=== PATIENT | female | born 1975 | race African-American/Black ===

== ENCOUNTER 2017-09-02 18:19 | Emergency (ER) | payer BC, OTHER ==
[~2017-09-02] VITALS: Ht 167.6 cm; Wt 77.1 kg
[~2017-09-02 18:19] MED LIST: AZITHROMYCIN 2250 MG PO; CENTRUM SILVER1 EAC2 PO; COMPAZINE5 M1 PO; ERYTHROMYCIN E3.5 G3 OPHTHALMIC; IRON325 PO; LEVSIN-SL0.125 MG SL; LISINOPRIL-HCT1 EAC2 PO; OMEPRAZOLE 20 M20 M1 PO; PERCOCET 5-3251 EACH PO; PHENERGAN 25 MG25 M1 PO; PRILOSEC 20 MG20 MG PO; TESSALON PERLE100 MG PO; ULTRAM 50MG TAB50 MG PO; UNICOMPLEX M TA1 TA1 PO; VENTOLIN HFA 1818 GM INH; ZESTORETIC 20-1 EAC1 PO
[2017-09-02] MEDS ORDERED: TESSALON PERLE100 MG PO (19:28)
[2018-01-28] MEDS ORDERED: BIOTIN10 MG PO (16:36)
[2018-01-28] MEDS ORDERED: POTASSIUM20 PO (17:31)
[2018-01-28] MEDS ORDERED: FLAGYL500 MG PO (17:33)
[2018-01-28] MEDS ORDERED: NORCO 5-325 TA1 EACH PO (17:33)
[2018-03-07] MEDS ORDERED: CLARITIN-D 121 EAC1 PO (21:09)
[2018-03-07] MEDS ORDERED: IBUPROFEN 600600 M1 PO (21:09)
[2018-03-07] MEDS ORDERED: CLARITIN10 MG PO (21:34)
[2018-03-07] MEDS ORDERED: LISINOPRIL-HCT1 EACH PO (21:34)
== END 2017-09-02 19:44 | disposition home or self-care (01) ==
LOC: ER 18:19
DX: J06.9 Acute upper respiratory infection, unspecified (principal); I10 Essential (primary) hypertension

== ENCOUNTER 2017-10-27 23:34 | Emergency (ER) | payer BC, OTHER ==
[~2017-10-27] VITALS: Ht 167.6 cm; Wt 81.7 kg
[2017-10-27] MEDS ORDERED: VITAMIN B-625 MG PO (23:57)
[2017-10-27] MEDS ORDERED: VITAMIN B122500 MC1 PO (23:57)
[2017-10-28] MEDS ORDERED: NAPROSYN500 MG PO (00:41)
[2017-10-28] MEDS ORDERED: TRAMADOL 50 MG50 MG PO (00:41)
[2017-10-28] MEDS ORDERED: NORFLEX100 MG PO (00:41)
[2017-10-28 01:16] VITALS: BP 157/90
== END 2017-10-28 01:17 | disposition home or self-care (01) ==
LOC: ER 23:34
DX: M75.52 Bursitis of left shoulder (principal); M43.6 Torticollis; I10 Essential (primary) hypertension; F17.210 Nicotine dependence, cigarettes, uncomplicated

== ENCOUNTER 2018-12-26 10:05 | Emergency (ER) | payer BC, OTHER ==
[~2018-12-26] VITALS: Ht 167.6 cm; Wt 83.5 kg
[2018-12-26 10:05] VITALS: BP 184/123
[~2018-12-26 10:05] MED LIST changes: +BIOTIN10 MG PO; +CLARITIN-D 121 EAC1 PO; +CLARITIN10 MG PO; +FLAGYL500 MG PO; +IBUPROFEN 600600 M1 PO; +LISINOPRIL-HCT1 EACH PO; +NAPROSYN500 MG PO; +NORCO 5-325 TA1 EACH PO; +NORFLEX100 MG PO; +POTASSIUM20 PO; +TRAMADOL 50 MG50 MG PO; +VITAMIN B-625 MG PO; +VITAMIN B122500 MC1 PO
[2018-12-26] MEDS ORDERED: MOBIC7.5 MG PO (10:28)
[2018-12-26] MEDS ORDERED: TRAMADOL 50 MG50 MG PO (10:28)
== END 2018-12-26 10:47 | disposition home or self-care (01) ==
LOC: ER 10:05
DX: G89.29 Other chronic pain (principal); M25.512 Pain in left shoulder; R20.0 Anesthesia of skin; R20.2 Paresthesia of skin; I10 Essential (primary) hypertension; I42.9 Cardiomyopathy, unspecified; F17.210 Nicotine dependence, cigarettes, uncomplicated; Z88.8 Allergy status to other drugs, medicaments and biological substances

== ENCOUNTER 2019-04-06 09:19 | Emergency (ER) | payer BC, OTHER ==
[~2019-04-06] VITALS: Ht 167.6 cm; Wt 88.0 kg
[~2019-04-06 09:19] MED LIST changes: +MOBIC7.5 MG PO
[2019-04-06 09:59] LABS: ABSOLUTE NEUTROPHILS 3.9 thou/uL (1.4-8.2); BASOPHILS 0.7 % (0.0-2.0); EOSINOPHILS 1.3 % (0.0-3.0); HEMATOCRIT 35.9 % (37.0-47.0); HEMOGLOBIN 11.9 gm/dL (12.0-15.0); LYMPHOCYTES 21.4 % (24.0-44.0); MCH 30.9 pg (26.0-34.0); MCV 93.5 fL (80.0-100.0); MONOCYTES 3.4 % (1.0-8.0); PLATELET COUNT 190 thou/uL (150-400); POLYS 73.2 % (36.0-66.0); RBC 3.84 mil/uL (4.20-5.00); RDW 14.5 % (10.5-14.5); WBC 5.3 thou/uL (4.0-11.0)
[2019-04-06 10:02] LABS: ANION GAP 8 mmol/L (7-16); BUN 10 mg/dL (7-18); CALCIUM 8.8 mg/dL (8.5-10.1); CHLORIDE 103 mmol/L (98-107); CO2 29 mmol/L (21-32); GLUCOSE 88 mg/dL (74-106); POTASSIUM 3.2 mmol/L (3.5-5.1); SODIUM 140 mmol/L (136-145)
[2019-04-06 10:13] LABS: ALBUMIN 3.4 g/dL (3.4-5.0); MAGNESIUM 1.7 mg/dL (1.8-2.4); SGOT 16 U/L (15-37); SGPT 15 U/L (30-65); TOTAL BILIRUBIN 0.4 mg/dL (<0.1-1.0); TROPONIN-I <0.06 ng/mL (<0.06)
[2019-04-06] MEDS ORDERED: LOTENSIN HCT 21 EAC2 PO (13:02)
[2019-04-06 13:16] VITALS: BP 183/98
--- NOTE | 2019-04-07 15:08 | EKG ---
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 : 1975 Requested By: Moses Vasquez Order Number: [id number] MD: Asif John Measurements Intervals [place] Rate: 65 P: 46 IA: 214 QRS: 16 QRSD: 83 T: 41 QT: 425 QTc: 442 Interpretive Statements Sinus rhythm Prolonged IA interval Left atrial enlargement Anteroseptal infarct, age indeterminate Baseline wander in lead(s) II Compared to ECG 01/28/2018 14:25:21 First degree AV block now present Atrial abnormality now present Myocardial infarct finding now present Poor R-wave progression no longer present Electronically Signed On 04-07-2019 15:07:48 CDT by Asif John [email or web address] <ELECTRONICALLY SIGNED> By: Asif John MD 04/07/19 1507 8 8 Asif John MD /EPI
--- NOTE | 2019-04-07 15:09 | EKG ---
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
== END 2019-04-06 13:17 | disposition home or self-care (01) ==
LOC: ER 09:19
PROVIDERS: Emergency Medicine
DX: R07.89 Other chest pain (principal); F17.210 Nicotine dependence, cigarettes, uncomplicated; I10 Essential (primary) hypertension; Z88.8 Allergy status to other drugs, medicaments and biological substances

== ENCOUNTER 2021-02-06 13:45 | Emergency (ER) | payer OTHER ==
[~2021-02-06] VITALS: Ht 167.6 cm; Wt 87.5 kg
[~2021-02-06 13:45] MED LIST changes: +LOTENSIN HCT 21 EAC2 PO
[2021-02-06] MEDS ORDERED: PERCOCET 5-3251 EACH PO ×2 (15:50→16:02)
[2021-02-06 16:11] VITALS: BP 219/126
== END 2021-02-06 16:11 | disposition home or self-care (01) ==
LOC: ER 13:45
DX: M25.552 Pain in left hip (principal); I10 Essential (primary) hypertension; F17.210 Nicotine dependence, cigarettes, uncomplicated; Z79.899 Other long term (current) drug therapy; Z88.8 Allergy status to other drugs, medicaments and biological substances